=== PATIENT | female | born 1975 | race Caucasian/White ===

== ENCOUNTER 2016-11-06 12:12 | Emergency (ER) | payer MEDICAID ==
[2015-11-25 13:46] VITALS: BMI 30.1
[~2016-11-06 12:12] MED LIST: AMBIEN10 MG PO; BENZTROPINE ME0.5 MG PO; CELEXA40 MG PO; CLONAZEPAM2 MG/TAB PO; DEPAKOTE500 MG PO; LEVAQUIN500 MG PO; LYRICA100 MG PO; MAXALT10 MG PO; NAPROSYN500 MG PO; SEROQUEL100 MG PO; TRAZODONE HCL150 MG PO; ZOFRAN8 MG PO
[2016-11-06 12:36] LABS: BASOPHILS 0.5 % (0.0-2.0); EOSINOPHILS 1.4 % (0-7); HEMATOCRIT 39.9 % (36.0-48.0); HEMOGLOBIN 13.1 g/dL (12-16); IMMATURE GRANULOCYTES 0.2 % (0-5); LYMPHOCYTES 30.6 % (15-50); MCH 28.6 pg (26.0-34.0); MCHC 32.8 g/dL (31.0-37.0); MCV 87.1 fL (80.0-100.0); MEAN PLATELET VOLUME 10.3 fL (7.4-10.4); MONOCYTES 6.5 % (2-11); NEUTROPHILS 60.8 % (40-80); PLATELET COUNT 211 10x3/uL (130-400); RBC 4.58 10x6/uL (4.00-5.40); RDW 13.1 % (11.5-14.5); WBC 6.3 10x3/uL (4.8-10.8)
[2016-11-06 12:51] LABS: ALKALINE PHOSPHATASE 49 U/L (46-116); ALT (SGPT) 28 U/L (10-68); CALC OSMOLALITY 276 mosm/kg (275-300); CALCIUM 8.9 mg/dL (8.5-10.1); CHLORIDE - SERUM 103 mmol/L (98-107); CREATININE - SERUM 0.8 mg/dL (0.6-1.3); GLUCOSE 85 mg/dL (74-106); POTASSIUM - SERUM 4.4 mmol/L (3.5-5.1); SODIUM 139 mmol/L (136-145); UREA NITROGEN 12 mg/dL (7-18); eGFR NON AFRICAN AMERICAN 84 mL/min (90-120)
[2016-11-06 13:09] LABS: HCG URINE NEGATIVE (NEGATIVE)
[2016-11-06 13:12] LABS: APPEARANCE SLT CLOUDY (CLEAR); BILIRUBIN NEGATIVE (NEGATIVE); COLOR YELLOW (YELLOW); GLUCOSE NEGATIVE (NEGATIVE); KETONE NEGATIVE (NEGATIVE); LEUKOCYTE ESTERASE 1+ (NEGATIVE); NITRITE NEGATIVE (NEGATIVE); PROTEIN NEGATIVE (NEGATIVE); SPECIFIC GRAVITY 1.015 (1.005-1.020); UROBILINOGEN NORMAL (NORMAL)
[2016-11-06 13:15] LABS: BACTERIA MODERATE /hpf (NONE SEEN); EPITHELIAL CELLS 0-5 /hpf (0-5); MUCUS <1+ /lpf (NONE SEEN); RED CELLS - URINE 0-5 /hpf (0-5)
[2016-11-06 13:37] LABS: UDS - AMPHET NEGATIVE QUAL (NEGATIVE); UDS - BARB NEGATIVE QUAL (NEGATIVE); UDS - BENZO POSITIVE QUAL (NEGATIVE); UDS - COCAINE NEGATIVE QUAL (NEGATIVE); UDS - METH NEGATIVE QUAL (NEGATIVE); UDS - OPIATE NEGATIVE QUAL (NEGATIVE); UDS - PCP NEGATIVE QUAL (NEGATIVE); UDS - THC NEGATIVE QUAL (NEGATIVE)
== END 2016-11-06 17:47 | disposition home or self-care (01) ==
LOC: D.ER 12:12
PROVIDERS: Emergency Medicine
DX: F32.9 Major depressive disorder, single episode, unspecified (principal); R45.851 Suicidal ideations; Z91.5 Personal history of self-harm

== ENCOUNTER 2020-11-16 15:00 | Outpatient (CLI) | payer MEDICARE ==
[2020-11-16] MEDS ORDERED: NEURONTIN600 MG PO (15:19)
[2020-11-16] MEDS ORDERED: TRILEPTAL300 MG PO (15:20)
[2020-11-16] MEDS ORDERED: NEURONTIN 300300 MG PO (15:20)
[2020-11-16] MEDS ORDERED: SEROQUEL300 MG PO (15:21)
[2020-11-16] MEDS ORDERED: INDERAL 40 MG T40 MG PO (15:21)
[2020-11-16] MEDS ORDERED: HYDROXYZINE HCL50 MG PO ×2 (15:22→15:24)
[2020-11-16] MEDS ORDERED: FLUVOXAMINE MAL50 MG PO (15:22)
[2020-11-16] MEDS ORDERED: GUANFACINE PO (15:24)
[2020-11-16] MEDS ORDERED: LEXAPRO10 MG PO (15:25)
[2020-11-16 20:58] VITALS: BMI 44.3
== END 2020-11-16 16:18 | disposition other institution (70) ==
LOC: D.OPS 15:00
PROVIDERS: ATTEND Emergency Medicine
DX: T42.4X1A Poisoning by benzodiazepines, accidental (unintentional), initial encounter (principal); F31.60 Bipolar disorder, current episode mixed, unspecified; I10 Essential (primary) hypertension; Z11.52 Encounter for screening for COVID-19; R56.9 Unspecified convulsions